=== PATIENT | female | born 1935 | race Caucasian/White ===

== ENCOUNTER → 2020-06-17 | Outpatient (CLI) | payer MEDICARE, OTHER | LOC: LAB 15:54 | DX: E78.5 Hyperlipidemia, unspecified (principal); E55.9 Vitamin D deficiency, unspecified; M79.644 Pain in right finger(s); W19.XXXA Unspecified fall, initial encounter; M19.041 Primary osteoarthritis, right hand | CPT/HCPCS: 73130; 80061 ==

== ENCOUNTER 2021-06-18 20:14 | Emergency (ER) | payer MEDICARE, OTHER ==
[2021-06-18 21:25] LABS: HEMOGLOBIN 14.4 gm/dl (12.3-15.3); RED BLOOD COUNT 4.72 M/UL (4.00-5.10); WHITE BLOOD COUNT 13.9 K/UL (4.5-11.0)
[2021-06-19] MEDS ORDERED: OMNICEF 300 MG300 MG PO (02:08)
== END 2021-06-19 02:22 | disposition home or self-care (01) ==
LOC: ER1 20:14
PROVIDERS: Family Medicine
DX: N39.0 Urinary tract infection, site not specified (principal)
CPT/HCPCS: 70450; 71045; 80053; 81001; 82550; 82553; 83605; 84484; 85025; 87040; 87077; 87086; 87186; 93005; 96374; 99285; J0696

== ENCOUNTER 2021-09-09 15:52 | Emergency (ER) | payer MEDICARE, OTHER ==
[~2021-09-09 15:52] MED LIST: OMNICEF 300 MG300 MG PO
[2021-09-09 17:21] LABS: HEMOGLOBIN 15.2 gm/dl (12.3-15.3); RED BLOOD COUNT 5.16 M/UL (4.00-5.10); WHITE BLOOD COUNT 10.8 K/UL (4.5-11.0)
[2021-09-09] MEDS ORDERED: CEPHALEXIN500 M1 PO (21:02)
== END 2021-09-09 21:45 | disposition home or self-care (01) ==
LOC: ER1 15:52
PROVIDERS: Physician Assistant
DX: S61.411A Laceration without foreign body of right hand, initial encounter (principal); S00.83XA Contusion of other part of head, initial encounter; E78.5 Hyperlipidemia, unspecified; I10 Essential (primary) hypertension; M25.562 Pain in left knee; W01.10XA Fall on same level from slipping, tripping and stumbling with subsequent striking against unspecified object, initial encounter
CPT/HCPCS: 70450; 71045; 73130; 73564; 80053; 81001; 82550; 82553; 84484; 85025; 99284